=== PATIENT | female | born 1980 | race Caucasian/White ===

== ENCOUNTER 2019-07-28 07:19 | Emergency (ER) | payer MEDICAID ==
[~2019-07-28] VITALS: Ht 160 cm; Wt 70.3 kg
[2019-07-28 07:37] VITALS: BP 132/77
[2019-07-28] MEDS ORDERED: ACETAMINOPHEN 325 MG TAB PO ONE (08:00)
[2019-07-28] MEDS ORDERED: IBUPROFEN 600 MG TAB PO ONE (08:00)
[2019-07-28 08:09] VITALS: BP 132/77
== END 2019-07-28 08:09 | disposition home or self-care (01) ==
LOC: MED 07:19
DX: H66.92 Otitis media, unspecified, left ear (principal); R51 Headache
CPT/HCPCS: 99283

== ENCOUNTER 2019-10-25 21:33 | Emergency (ER) | payer MEDICAID ==
[~2019-10-25] VITALS: Ht 157.5 cm; Wt 70.3 kg
[2019-10-25 21:43] VITALS: BP 138/81
[2019-10-25] MEDS ORDERED: KETOROLAC 60 MG/2 ML VIAL IM ONE (22:30)
[2019-10-25 22:49] VITALS: BP 138/81
== END 2019-10-25 22:49 | disposition home or self-care (01) ==
LOC: MED 21:33
DX: R07.9 Chest pain, unspecified (principal); E07.9 Disorder of thyroid, unspecified; I10 Essential (primary) hypertension; K21.9 Gastro-esophageal reflux disease without esophagitis; R21 Rash and other nonspecific skin eruption; Z90.49 Acquired absence of other specified parts of digestive tract
CPT/HCPCS: 93005; 96372; 99283; J1885

== ENCOUNTER 2019-11-12 11:07 | Emergency (ER) | payer MEDICAID, SELFPAY ==
[~2019-11-12] VITALS: Ht 152.4 cm; Wt 70.8 kg
[2019-11-12 11:19] VITALS: BP 128/81
--- NOTE | 2019-11-12 11:28 | NUR ---
pt ambulated to chair with steady gait
--- NOTE | 2019-11-12 11:29 | NUR ---
two days headache and sorethroat not accompanied by fever nor cough . pt aox4 , afibrile , ambulatory with steady gait.congested tonsils . pmhxs htn.
--- NOTE | 2019-11-12 14:00 | NUR ---
covid swab done and sent to lab with elieser mcfadden.
--- NOTE | 2019-11-12 14:02 | NUR ---
Patient discharged with v/s stable. Written and verbal after care instructions given and explained. Patient verbalized understanding. Ambulatory with steady gait. All questions addressed prior to discharge. Advised to follow up with PMD.
[2019-11-12 14:27] VITALS: BP 128/81
== END 2019-11-12 14:02 | disposition home or self-care (01) ==
LOC: EEVIPCON 11:07 → MED 11:07
DX: R05 Cough (principal); R51 Headache; H92.03 Otalgia, bilateral; I10 Essential (primary) hypertension; E07.9 Disorder of thyroid, unspecified; Z90.49 Acquired absence of other specified parts of digestive tract; Z20.828 Contact with and (suspected) exposure to other viral communicable diseases
CPT/HCPCS: 71045; 99284; U0003

== ENCOUNTER 2020-11-28 08:03 | Emergency (ER) | payer MEDICAID, SELFPAY ==
[~2020-11-28] VITALS: Ht 154.9 cm; Wt 67.1 kg
[2020-11-28 08:18] VITALS: BP 144/91
--- NOTE | 2020-11-28 08:36 | NUR ---
40 Y/O FEMALE C/O SUBJECTIVE FEVER AT HOME, HEADACHE, SORE THROAT AND MYALGIA X1DAY. DENIES N/V/D, DENIES COUGH, DENIES CHEST PAIN OR SOB AT THIS TIME. PMH: HTN NKA
--- NOTE | 2020-11-28 08:50 | NUR ---
Dr. Clemens at pt bedside for further evaluation.
[2020-11-28] MEDS ORDERED: IBUP-2213 PO (09:36)
--- NOTE | 2020-11-28 09:40 | NUR ---
SWABS SENT TO LAB
--- NOTE | 2020-11-28 09:46 | NUR ---
COLLECTED ANTONIO SANTANA, WALKED TO LAB.
[2020-11-28 09:58] VITALS: BP 144/91
--- NOTE | 2020-11-28 09:59 | NUR ---
Patient discharged with v/s stable. Written and verbal after care instructions given VIRAL and explained. Patient alert, oriented and verbalized understanding of instructions. Ambulatory with steady gait. All questions addressed prior to discharge. ID band removed. Patient advised to follow up with PMD. Rx of IBUPROFEN 400MG PO Q6H PRN given. Patient educated on indication of medication including possible reaction and side effects. Opportunity to ask questions provided and answered.
== END 2020-11-28 09:59 | disposition home or self-care (01) ==
LOC: MED 08:03
DX: B34.9 Viral infection, unspecified (principal); Z20.822 Contact with and (suspected) exposure to COVID-19; I10 Essential (primary) hypertension; E07.9 Disorder of thyroid, unspecified; Z79.899 Other long term (current) drug therapy
CPT/HCPCS: 99283; U0003

== ENCOUNTER 2023-03-03 08:18 | Emergency (ER) | payer MEDICAID ==
[~2023-03-03] VITALS: Ht 147.3 cm; Wt 72.6 kg
[~2023-03-03 08:18] MED LIST: IBUP-2213 PO
[2023-03-03 08:35] VITALS: BP 138/87; PULSE 85; RESP 16; TEMP 97.4; O2SAT 99
[2023-03-03 09:05] VITALS: O2SAT 99
[2023-03-03 09:24] LABS: APPEARANCE,URINE CLEAR (CLEAR); BILIRUBIN,URINE NEGATIVE (NEGATIVE); BLOOD, URINE TRACE-I (NEGATIVE); COLOR,URINE YELLOW (YELLOW); LEUKOCYTE ESTERASE ,URINE NEGATIVE (NEGATIVE); NITRITE, URINE NEGATIVE (NEGATIVE); PROTEIN,URINE NEGATIVE (NEGATIVE); UGLUCOSE NEGATIVE (NEGATIVE); UROBILINOGEN,URINE 0.2 EU/dL (0.2 - 1)
[2023-03-03 10:19] LABS: RBC,URINE 0-5 /HPF (0-5)
[2023-03-03 10:20] LABS: BACTERIA,URINE FEW /HPF (None Seen); MUCUS,URINE None Seen /LPF (None Seen); SQUAMOUS EPITHELIAL CELL,UR 0-3 (FEW) /LPF (0-3 (FEW)); TRICHOMONAS,URINE None Seen /HPF (None Seen); WBC,URINE 0-5 /HPF (0-5); WHITE BLOOD CELL CASTS,URINE None Seen /LPF (None Seen); YEAST,URINE None Seen /HPF (None Seen)
[2023-03-03] MEDS ORDERED: PYR100 PO (10:31)
[2023-03-03] MEDS ORDERED: CEPH-588 PO (10:31)
[2023-03-03 10:43] VITALS: BP 130/80; PULSE 99; RESP 16; TEMP 97.4; O2SAT 99
== END 2023-03-03 10:43 | disposition home or self-care (01) ==
LOC: MED 08:18
DX: N39.0 Urinary tract infection, site not specified (principal); I10 Essential (primary) hypertension; E03.9 Hypothyroidism, unspecified; Z90.49 Acquired absence of other specified parts of digestive tract; Z79.1 Long term (current) use of non-steroidal anti-inflammatories (NSAID)
CPT/HCPCS: 81001; 81025; 87086; 87491; 99283